=== PATIENT | female | born 1980 | race Caucasian/White ===

== ENCOUNTER 2016-10-18 12:16 | Emergency (ER) | payer MEDICAID ==
[~2016-10-18 12:16] MED LIST: GLUCOPHAGE-DPS500 MG PO; HYDROCODONE 5MG/5 MG PO; LEVOTHYROXINE75 MCG PO
--- NOTE | 2016-11-02 15:33 | ER ---
ADMIT: 10/18/2016 RM/LOC: ER [facility] MR#: [id number] [address] [id number] PAUL SCHMIDT [address] [place] [address] Emergency Room Report SEX: F AGE: 36 : 1980 DATE: 10/18/2016 ADDENDUM: A 36-year-old white female, coming in with right wrist pain, works online, repetitive work. I do believe this is overuse injury with subsequent sprain of her right wrist. We put her in a splint, which she ought to use for a while. I put her on prednisone 20 b.i.d. x5 days. I gave her 20 [place] one p.o. q.6 p.r.n. pain. She may return to work tomorrow, but she has to be on light duty with no repetitive use of the right wrist, heat or ice, and then use her splint. She was so advised, understands. CONDITION ON DISCHARGE: Good. Johnny Hudson MD/ je JOB #: [id number] CC: Johnny Hudson MD, Attending Physician Josiha Coy MD, Family Physician
== END 2016-10-18 14:00 | disposition home or self-care (01) ==
LOC: ER 12:16
PROC: 2W3CX1Z Immobilization of Right Lower Arm using Splint (ICD-10-PCS; principal; 2016-10-18)
DX: S63.521A Sprain of radiocarpal joint of right wrist, initial encounter (principal); E03.9 Hypothyroidism, unspecified; E11.9 Type 2 diabetes mellitus without complications; F41.9 Anxiety disorder, unspecified; F32.9 Major depressive disorder, single episode, unspecified; F17.210 Nicotine dependence, cigarettes, uncomplicated; Z79.84 Long term (current) use of oral hypoglycemic drugs; Z79.899 Other long term (current) drug therapy; X50.3XXA Overexertion from repetitive movements, initial encounter; Y99.0 Civilian activity done for income or pay

== ENCOUNTER 2016-11-10 21:26 | Emergency (ER) | payer MEDICAID ==
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
== END 2016-11-10 23:20 | disposition home or self-care (01) ==
LOC: ER 21:26
DX: S39.012A Strain of muscle, fascia and tendon of lower back, initial encounter (principal); N30.00 Acute cystitis without hematuria; E11.9 Type 2 diabetes mellitus without complications; F32.9 Major depressive disorder, single episode, unspecified; E03.9 Hypothyroidism, unspecified; F41.9 Anxiety disorder, unspecified; F17.210 Nicotine dependence, cigarettes, uncomplicated; Z79.84 Long term (current) use of oral hypoglycemic drugs; X58.XXXA Exposure to other specified factors, initial encounter